=== PATIENT | male | born 1985 | race Caucasian/White ===

== ENCOUNTER 2017-10-26 18:13 | Emergency (ER) | payer OTHER ==
[~2017-10-26] VITALS: Ht 172.7 cm; Wt 76.7 kg
[2017-10-26] MEDS ORDERED: ONDANSETRON ODT 4 MG TAB.RAPDIS PO ONE (19:45)
[2017-10-26 20:11] VITALS: BP 129/87
[2017-10-26] MEDS ORDERED: ONDA4TAB10 SL (20:29)
--- NOTE | 2017-10-26 20:30 | PHYS DOC ---
Past History Past Medical History: Migraines Past Surgical History: Other Alcohol Use: Occasionally Drug Use: None Adult General Chief Complaint Chief Complaint: OVERDOSE HPI HPI Patient is a 32-year-old male presenting to the emergency department for evaluation of sweating and dry mouth in the setting of taking a gram of Tylenol and his triptan medication for his migraine headache. He says that he has been having a migraine headache all day long and then took a dose of his triptan in addition to 1 g of Tylenol and his headache improved however after he arrived to work he started to become diaphoretic and noticed his mouth was dry and he felt slightly off and came here for further evaluation as he felt that he may have overdosed on Tylenol. He denies ever having this sort of feeling before with his migraine headache. He denies any chest pain shortness of breath dizziness weakness numbness or tingling. He says he feels slightly nauseated but is in no obvious distress with normal vital signs. Review of Systems Review of Systems Constitutional: Denies fever or chills [] Respiratory: Denies cough or shortness of breath [] Cardiovascular: No additional information not addressed in HPI [] GI: Denies abdominal pain. + nausea. No vomiting, bloody stools or diarrhea [] Neurologic: + headache. No focal weakness or sensory changes [] All other systems were reviewed and found to be within normal limits, except as documented in this note. Current Medications Current Medications Current Medications Medications (Trade) Dose Ordered Sig/[facility] Start Time Stop Time Status Last Admin Dose Admin Ondansetron HCl (Zofran Odt) 4 mg 1X ONCE 10/26/17 19:45 10/26/17 19:46 DC 10/26/17 19:45 4 MG Allergies Allergies Allergies Coded Allergies Type Severity Reaction Last Updated Verified No Known Drug Allergies 10/26/17 No Physical Exam Physical Exam Constitutional: Well developed, well nourished, no acute distress, non-toxic appearance. [] Cardiovascular:Heart rate regular rhythm, no murmur [] Lungs & Thorax: Bilateral breath sounds clear to auscultation [] Abdomen: Bowel sounds normal, soft, no tenderness, no masses, no pulsatile masses. [] Skin: Warm, dry, no erythema, no rash. [] Back: No tenderness, no CVA tenderness. [] Extremities: No tenderness, no cyanosis, no clubbing, ROM intact, no edema. [] Neurologic: Alert and oriented X 3, normal motor function, normal sensory function, no focal deficits noted. [] Current Patient Data Vital Signs Vital Signs Date Time Temp Pulse Resp B/P (MAP) Pulse Ox O2 Delivery O2 Flow Rate FiO2 10/26/17 18:55 98.4 81 16 100 Room Air EKG EKG [] Radiology/Procedures Radiology/Procedures [] Course & Med Decision Making Course & Med Decision Making Patient with likely medication reaction to his triptan. He dosed appropriately on the triptan and the Tylenol. Other consideration is that he is having a complex migraine. His vital signs are normal here and he was given Zofran and says that he has no further nausea. His repeat neurologic exam is normal. Given patient appears well with normal vital signs benign physical exam he will be discharged in stable condition told to hold his triptan for now follow with his primary care provider on Sunday and come back to the ED sooner with any new worsening symptoms. Patient aware and agreeable with plan and verbalized understanding of the above instructions. Dragon Disclaimer Dragon Disclaimer This electronic medical record was generated, in whole or in part, using a voice recognition dictation system. Departure Departure: Impression: Primary Impression: Medication reaction Disposition: HOME, SELF-CARE Condition: STABLE Referrals: NON,STAFF (PCP) Patient Instructions: Migraine Headache Additional Instructions: HOLD OFF TAKING YOUR TRIPTAN MEDICATION FOR NOW. FOLLOW WITH YOUR DOCTOR ON SUNDAY AND COME BACK TO THE ED SOONER WITH ANY NEW OR WORSENING SYMPTOMS. THANK YOU! Scripts Ondansetron (ZOFRAN ODT) 4 Mg Tab.rapdis 1 TAB SL Q8HRS, #10 TAB Prov: ANUSHKA GARZA DO 10/26/17 Problem Qualifiers Primary Impression: Medication reaction Encounter type: initial encounter Qualified Codes: T88.7XXA - Unspecified adverse effect of drug or medicament, initial encounter ANUSHKA GARZA DO Oct 26, 2017 20:29
== END 2017-10-26 20:30 | disposition home or self-care (01) ==
LOC: ER 18:13
DX: R68.2 Dry mouth, unspecified (principal); T39.1X5A Adverse effect of 4-Aminophenol derivatives, initial encounter; T45.0X5A Adverse effect of antiallergic and antiemetic drugs, initial encounter; G43.909 Migraine, unspecified, not intractable, without status migrainosus; Y92.89 Other specified places as the place of occurrence of the external cause
CPT/HCPCS: 99283; Q0162